=== PATIENT | female | born 1970 | race Caucasian/White ===

== ENCOUNTER → 2017-02-03 | Outpatient (CLI) | payer BC ==
[~2017-02-03] MED LIST: ALBU1AER9 INH; ASCA500 PO; ATV5 PO; B-COCAP2 PO; BSP15 PO; CHOL100027 PO; GEMF600T PO; OMEG10007 PO; PRZC/10 PO; SIMV10TA2 PO; TRAZ50TA35 PO
--- NOTE | 2017-02-04 05:59 | PAP/PSG TECHNICIAN REPORT ---
[facility] Clother In Polysomnogram Report Study name: None Report date: 02/04/2017 Study date: 02/03/2017 Referring Physician: Gildardo Phillips M.P.A. Name: JAYSON WHITE Interpreting Physician: Seth Slater D.O. Date of : 1970 Clother In: Laura Spencer RPS. Sex: Female Age: 46 StudyType: PSG Weight: 155 lbs Height: 46 years, Height 5' 4" Neck Circum: 39 cm BMI: 26.6 Medications: Prazosin 1 mg, Clonidine .3mg, Quetiapine Fumarate 200 mg, Duloxetine 600 mg, [place] 300 mg Patient History 46 yr. old female here for a diagnostic sleep study. Patient has a history of bi polar, PTSD, borderline personality disorder, and ADHD. Patient complains of not sleeping well, gasping for air, and snoring. Patients [place] sleepiness scale score is 11/24. Parameters Monitored NPSG: E1-M2, E2-M1, Fp1-M2, Fp2-M1, F3-M2, F4-M2, F4-M1, C3-M2, C4-M2, C4-M1, O1-M2, O2-M2, O2-M1, T3-M2, T4-M1, P3-M2, P4-M1, CHIN1, CHIN2, HR, EKG, Legs, PFLOW, SNOR, FLOW, CFLOW, Tidal Volume, THOR, ABDO, SpO2, PLTH, CPRESS, ETCO2 Wave, ETCO2, pH Sleep Architecture Sleep Stages Time at Lights Off 10:39:54 PM STAGES Time (min.) TST (%) Time at Lights On 5:37:54 AM Wake 28.0 -- Total Recording Time (TRT) 418.50 min. N1 11.5 3 Total Sleep Period (TSP) 393.5 min. N2 262.0 67 Total Sleep Time (TST) 390.0min. N3 59.0 15 Awake Time 28.0 min. REM 57.5 15 Wake after Sleep Onset 3.5 min. Sleep Efficiency (SE) 93 % Sleep Onset Latency (DEE) 24.5 min. Number of Stage 1 Shifts None Awakenings 7 Stage Changes 38 Number of REM periods 7 REM 57.5 15 REM Latency 141.0 min. NREM 332.5 85 Body Position Analysis Supine Right Left Side Prone Vertical Total Sleep Time (min.) 164.0 107.8 139.2 246.92 0.0 5.3 Total Sleep Time (%) 37% 28% 36% 63 0% N/A% Total Sleep Time REM (min.) 26.5 0.0 31.0 None 0.0 0.0 Total Sleep Time NREM (min.) 116.6 107.8 108.2 None 0.0 0.0 Intermittent Wake (min.) 20.9 0.7 1.0 None 0.0 5.3 Total Sleep Period (%) 37% None None None None None Arousals Myoclonus (PLM) * Events Count Index Events Count Index Spontaneous 2 0 Events Awake (PLMW) 20 42.9 Respiratory 5 0.8 Events Asleep w/ Arousal (PLMA) 4 0.6 PLM 4 1 Events Asleep w/o Arousal (PLMS) 161 24.8 Snoring 5 1 Total Asleep 165 25.4 Total 16 2 Total 185 27 Respiratory Analysis * CA OA MA CH H RERA Total Count 0 0 0 0 41 0 41 Index 0.0 0.0 0.0 0 6.3 0 6.3 Mean Duration 0.0 0.0 0.0 0.00 31.5 0.0 31.5 Longest Duration 0.0 0.0 0.0 0.00 0.0 0.0 55.2 Respiratory Event Summary Total Supine ~Supine Right Left Prone REM NREM Apneas Count 0 0 0 0 0 N/A 0 0 Index 0.0 0 0 0.0 0.0 N/A 0 0 Hypopneas (4% Desat) Count 41 41 0 0 0 N/A 2 39 Index 6.3 17.2 0 0.0 0.0 N/A 2.1 7.0 Apneas & All Hypopneas Count 41 41 0 0 0 N/A 2 39 Index 6.3 17 0 0 0 N/A 2.1 7.0 Respiratory Events (Elevator Mechanic Apprentice+All Hyp+RERA) Count 41 41 0 0 0 N/A 2 39 Index 6.3 17 0 0.0 0.0 N/A 2.1 7.0 Respiratory Related Arousal Count 5 41 0 0 0 N/A 0 5 Index 0.8 2 0 0 0 N/A 0 1 Snoring Analysis Supine Right Left Prone REM NREM Total Snore duration 60.6 min Snores count 1,270 725 98 N/A 114 1,979 2,093 Snore mean duration 1.7 Sec Snores index 533 404 42 N/A 119.0 357.1 322.0 TST with snoring (%) 15.5% Desaturation Event Summary: Minimum %SpO2 Event Count Mean/Min/Max Duration(sec.) Desaturation Index % Time In Bed > 90 42 33.6 / 5.3 / 59.0 6.1 98.8 86 - 90 0 N/A 0.0 1.2 81 - 85 0 N/A 0.0 0.0 76 - 80 0 N/A 0.0 0.0 71 - 75 0 N/A 0.0 0.0 66 - 70 0 N/A 0.0 0.0 61 - 65 0 N/A 0.0 0.0 56 - 60 0 N/A 0.0 0.0 51 - 55 0 N/A 0.0 0.0 < 50 0 N/A 0.0 0.0 Total REM NREM Awake <50% 0.0 min. 0.0 min. 0.0 min. 0.0 min. 51 - 60% 0.0 min. 0.0 min. 0.0 min. 0.0 min. 61 - 70% 0.0 min. 0.0 min. 0.0 min. 0.0 min. 71 - 80% 0.0 min. 0.0 min. 0.0 min. 0.0 min. 81 - 90% 4.9 min. 0.2 min. 4.7 min. 0.0 min. 91 - 100% 413.0 min. 57.3 min. 327.8 min. 27.9 min. Average 94 95 94 96 Minimum SpO2 87 89 87 93 Desaturation Event Index 6.0 1.0 7.2 2.1 # Desat. Events below 89% 3 N/A 3 N/A Time(%) with Saturation below 89% 0.1 0.0 0.1 0.0 Time(min.) with Saturation below 89% 0.4 0.0 0.4 0.0 Time (mins) REM (mins) NREM (mins) % of TST SpO2 Below 90% 23 1 N22 0.5 SpO2 Below 88% 1 0 0 0 Heart Rate Analysis Min (bpm) Max (bpm) Average (bpm) Awake 51 96 70 NREM 47 87 59 REM 47 66 54 Overall 47 87 59 Supplemental O2 Values Minimum O2 level: None Value Start Time End Time Clother In Comments slept in the right, left, and supine positions. No cardiac arrhythmia or PLMs noted. No bruxism noted. Snoring was noted and scored as a 4 on a scale of 0 through 5. (0=no snoring, 5=snoring loud enough to be heard through a closed door or down the dean way) did not wake to use the restroom during the night. stated, I am not sure if I slept. The final report will be interpreted and signed by a sleep physician. The completed physician report will then be placed in the patient medical record. Therapy (cm H2O) 0 TIB (min.) 418.0 TST (min.) 390.0 Sleep Onset (min.) 24.5 REM Onset From Sleep (min.) 141.0 Sleep Efficiency % 93 Wakefulness (%) 7 Wakefulness (min.) 28.0 NREM 1 (%) 3 NREM 1 (min.) 11.5 NREM 2 (%) 67 NREM 2 (min.) 262.0 NREM 3 (%) 15 NREM 3 (min.) 59.0 REM (%) 15 REM (min.) 57.5 # Arousals 16 Arousal Index 2 # Snore 2,093 Snore Index 322.0 AHI 6.3 AHI Supine 17 AHI Non-Supine 0 NREM AHI 7.0 REM AHI 2.1 RDI 6.3 # Obstructive Apnea 0 # Central Apnea 0 # Mixed Apnea 0 # Hypopneas 41 RERAs 0 Total Respiratory Events 43 Time Below SpO2 89% (min.) 0.4 Mean NREM SpO2 (%) 94 Mean REM SpO2 (%) 95 Mean Sleep SpO2 (%) 94 Min NREM SpO2 (%) 87 Min REM SpO2 (%) 89 Position Supine (min.) 164.0 Position Non-supine (min.) 246.9 LM Index Sleep 25.4 LM Index NREM 26.9 LM Index REM 16.7 Mean Heart Rate (bpm) 59 Min Heart Rate (bpm) 47
--- NOTE | 2017-02-07 07:49 | POLYSOMNOGRAPH REPORT ---
REFERRING PHYSICIAN: Dr. Luis Antonio Morrison, [facility]. CLINICAL DATA: The patient is a 46-year-old female who has a BMI of 26.6. She is referred with symptoms of snoring, observed apneas, nocturnal gasping and not resting well. She has a history of nightmares. Her [place] score is 11 out of a possible 24. This was an in-lab diagnostic sleep study. SLEEP ARCHITECTURE: The patient had a total sleep period 393.5 minutes with a total sleep time of 390 minutes. Her sleep efficiency was normal at 93%. The sleep onset latency was 24.5 minutes. Wake after sleep onset was only 3.5 minutes. The REM latency was prolonged to 141.0 minutes. The patient does take duloxetine which can suppress REM sleep. Sleep consisted of stage N1 3%, stage N2 67%, stage N3 15% and stage REM 15%. AROUSAL DATA: The patient had a total of 16 arousals including 2 spontaneous, 5 respiratory, 4 PLM and 15 snoring arousals. The arousal index was 2. PLM DATA: The patient had 165 periodic limb movements of sleep for an index of 25.4. There was only 4 arousals for a PLM arousal index of 0.6. EKG: The underlying cardiac rhythm was normal sinus. The cardiac rates ranged from 47-87 with an average of 59. RESPIRATORY DATA: The patient had a total of 41 respiratory events, all hypopneas. Hypopneas were scored according to the 4% desaturation rule. The apnea-hypopnea index is mildly elevated at 6.3 events per hour. This would be compatible with mild sleep apnea. The mean duration of hypopneas was 31.5 seconds. OXIMETRY DATA: The average saturation for the night was 94%. The minimum saturation was 87%. She had only 1 minute with saturations less than 88%. CUT OFF SAW TENDER METAL'S COMMENTS: The patient slept in the right, left and supine positions. No cardiac arrhythmias were noted. No bruxism noted. Snoring was noted and scored as a 4 on a scale of 0 through 5. IMPRESSION: 1. Obstructive sleep apnea -- mild. 2. Periodic limb movement disorder. COMMENTS: The patient had a normal sleep efficiency. In spite of this, following the study she told the appliance repair technician she was not sure she slept. This would suggest some degree of sleep state misperception. She had very mild sleep apnea. All of her respiratory events occurred when she was supine. She had no events at all when she was not supine and she had spent 37% of the night in the supine position. Clearly, there is a strong association with the events occurring in the supine position. She did not have any significant hypoxia. She did have modest number of limb movements as noted. These were not, however, associated with significant amount of arousals. It is possible some of her medications could contribute to the limb movements. RECOMMENDATIONS: 1. The patient has very mild sleep apnea. Clinical correlation is required. If it was felt that her symptoms were likely to be related to sleep apnea, she would be a candidate for a trial of nasal CPAP. She could be treated by auto CPAP. Alternatively, she could be referred back for an in-lab CPAP titration study. 2. If the patient did not desire treatment with nasal CPAP, referral for an oral appliance could be considered. 3. The patient should be strongly advised to avoid sleeping in the supine position. It appears that she does not sleep supine preferentially. Some alternative efforts to keep the patient away from the supine position could be entertained such as sewing 1-2 tennis balls into the back of her nightshirt. Alternatively, there are devices which can be purchased which assist keeping the patient off of her back. 4. A thorough history of the patient's sleep hygiene should be undertaken. She should be advised to have a fairly regular sleep-wake schedule and to allow approximately 7.5 hours of sleep time per night. KARMEN
--- NOTE | 2017-02-11 16:29 | CODING QUERY NO DIAGNOSIS ---
TREATMENT RENDERED WITHOUT A DIAGNOSIS To promote full compliance with coding requirements relating to patient care, physician participation is requested in all cases of connection worker uncertainty. Please assist us with providing a diagnosis/symptom for the test(s) below: A diagnosis/symptom was not documented on your Order. A valid diagnosis/symptom is required to bill all insurances. Please remember that we are unable to code a diagnosis of rule out, probable, possible, questionable, or suspected. Tests that require a diagnosis: * SLEEP STUDY DIAGNOSIS: Provider Signature: Date: Thank you Joselin [employer] [place] Information Management Once completed, please kindly fax back to [phone] For questions please call [phone]
== END | disposition home or self-care (01) ==
LOC: C.NEUR 20:00
PROVIDERS: ATTEND Physician Assistant
DX: F31.89 Other bipolar disorder (principal); F51.01 Primary insomnia